=== PATIENT | female | born 1970 | race Caucasian/White ===

== ENCOUNTER → 2018-01-04 | Outpatient (CLI) | payer OTHER ==
[~2018-01-04] MED LIST: AMOX500 PO; HYDHCL25 PO; PRED20 PO; PROM25 PO; RANI150 PO; RXHYDACE PO; RXTRAM50 PO; TRAM50 PO
[2018-01-04 14:43] LABS: Candida species (DNA Probe) Positive (NEGATIVE); G. vaginalis (DNA Probe) Negative (NEGATIVE); T. vaginalis (DNA Probe) Negative (NEGATIVE)
[2018-01-05 16:08] LABS: HPV 16 Negative (Negative); HPV 18 Negative (Negative); HPV OTHER HR TYPES Negative (Negative)
== END ==
LOC: LAB SHORT 09:31 → LAB 09:31
PROVIDERS: Nurse Practitioner Family
DX: Z12.4 Encounter for screening for malignant neoplasm of cervix (principal); N89.8 Other specified noninflammatory disorders of vagina
CPT/HCPCS: 87480; 87510; 87624; 87660; G0145

== ENCOUNTER 2019-06-03 20:22 | Emergency (ER) | payer OTHER ==
[~2019-06-03] VITALS: Ht 154.9 cm; Wt 56.7 kg
[~2019-06-03 20:22] MED LIST changes: +Celebrex200 MG PO; +HYDR1TAB94 PO; +KETO10 PO; +Prednisone20 MG PO; +Voltaren100 GM TOP
[2019-06-03 20:50] LABS: Source, Urine Voided
[2019-06-03 20:52] LABS: Appearance, Urine Clear (Clear); Bilirubin, Urine Neg (Neg); Blood, Urine 1+ (Neg); Color, Urine Yellow (P-Yellow); Glucose Qualitative, Urine Neg (Neg); Ketones, Urine Neg (Neg); Leukocyte Esterase, Urine Neg (Neg); Nitrite, Urine Neg (Neg); Protein, Urine Neg (Neg); Urobilinogen, Urine NORM (Normal)
[2019-06-03 21:03] LABS: Bacteria Few /hpf; Red Blood Cells, Urine 0-2 /hpf (0-2); Squamous Epithelial Cells Few /hpf (Few); White Blood Cells, Urine 0-2 /hpf (0-5)
[2019-06-03] MEDS ORDERED: Macrobid 100 M100 MG PO (21:36)
== END 2019-06-03 21:42 | disposition home or self-care (01) ==
LOC: ER 20:22
PROVIDERS: Emergency Medicine
DX: N95.2 Postmenopausal atrophic vaginitis (principal); R30.0 Dysuria; F31.9 Bipolar disorder, unspecified; F17.200 Nicotine dependence, unspecified, uncomplicated; Z85.820 Personal history of malignant melanoma of skin; Z79.899 Other long term (current) drug therapy
CPT/HCPCS: 81001; 99283

== ENCOUNTER 2019-07-30 11:18 | Emergency (ER) | payer OTHER ==
[~2019-07-30] VITALS: Ht 154.9 cm; Wt 54.4 kg
[~2019-07-30 11:18] MED LIST changes: +Macrobid 100 M100 MG PO
[2019-07-30] MEDS ORDERED: Norco 5-325 Ta1 EACH PO (11:40)
[2019-07-30] MEDS ORDERED: PENVK500 PO (11:40)
[2019-07-30] MEDS ORDERED: Veetids 500500 MG PO (11:47)
[2019-07-30] MEDS ORDERED: Acetaminophen-1 EAC1 PO (11:47)
== END 2019-07-30 12:22 | disposition home or self-care (01) ==
LOC: ER 11:18
DX: K03.81 Cracked tooth (principal); F17.200 Nicotine dependence, unspecified, uncomplicated
CPT/HCPCS: 99282

== ENCOUNTER 2020-04-30 10:07 | Day surgery (SDC) | payer OTHER ==
[~2020-04-30] VITALS: Ht 154.9 cm; Wt 53.3 kg
[~2020-04-30 10:07] MED LIST changes: +Acetaminophen-1 EAC1 PO; +Norco 5-325 Ta1 EACH PO; +PENVK500 PO; +Veetids 500500 MG PO
[2020-04-30] MEDS ORDERED: THERA-D2000 UNIT PO (11:29)
[2020-04-30] MEDS ORDERED: IRON18 MG PO (11:29)
== END 2020-04-30 13:10 | disposition home or self-care (01) ==
LOC: ORSCSDS 10:07
PROVIDERS: Internal Medicine Gastroenterology
PROC: 0DBN8ZX Excision of Sigmoid Colon, Via Natural or Artificial Opening Endoscopic, Diagnostic (ICD-10-PCS; principal; 2020-04-30 12:15)
PROC: 0DB68ZX Excision of Stomach, Via Natural or Artificial Opening Endoscopic, Diagnostic (ICD-10-PCS; principal; 2020-04-30 12:15)
PROC: 0DB98ZX Excision of Duodenum, Via Natural or Artificial Opening Endoscopic, Diagnostic (ICD-10-PCS; principal; 2020-04-30 12:15)
DX: D50.9 Iron deficiency anemia, unspecified (principal); D12.5 Benign neoplasm of sigmoid colon; K57.30 Diverticulosis of large intestine without perforation or abscess without bleeding; K64.1 Second degree hemorrhoids; K20.90 Esophagitis, unspecified without bleeding; Z87.891 Personal history of nicotine dependence
CPT/HCPCS: 88305; 88342; J2250; J2405; J2704; J7120

== ENCOUNTER 2020-09-12 09:08 | Emergency (ER) | payer OTHER ==
[~2020-09-12] VITALS: Ht 154.9 cm; Wt 52.2 kg
[~2020-09-12 09:08] MED LIST changes: +IRON18 MG PO; +THERA-D2000 UNIT PO
[2020-09-13] MEDS ORDERED: Norco 5-325 Ta1 EACH PO (08:57)
== END 2020-09-12 10:34 | disposition home or self-care (01) ==
LOC: ER 09:08
DX: S63.502A Unspecified sprain of left wrist, initial encounter (principal); F17.290 Nicotine dependence, other tobacco product, uncomplicated; W01.0XXA Fall on same level from slipping, tripping and stumbling without subsequent striking against object, initial encounter
CPT/HCPCS: 73110; 99283-25

== ENCOUNTER 2020-09-13 08:39 | Emergency (ER) | payer OTHER ==
[~2020-09-13] VITALS: Ht 154.9 cm; Wt 52.2 kg
[2020-09-13] MEDS ORDERED: Norco 5-325 Ta1 EACH PO (08:57)
== END 2020-09-13 09:32 | disposition home or self-care (01) ==
LOC: ER 08:39
DX: S52.515A Nondisplaced fracture of left radial styloid process, initial encounter for closed fracture (principal); F17.290 Nicotine dependence, other tobacco product, uncomplicated; Z79.899 Other long term (current) drug therapy; X58.XXXA Exposure to other specified factors, initial encounter
CPT/HCPCS: 29125; 99281-25